=== PATIENT | female | born 1955 | race American Indian/Alaskan Native ===

== ENCOUNTER 2020-07-13 10:24 | Outpatient (CLI) | payer OTHER, MEDICARE ==
--- NOTE | 2020-07-13 11:17 | XRay Report ---
RIGHT SHOULDER 3 VIEW(S) INDICATION / CLINICAL INFORMATION: RT SHOULDER PAIN, DECREASED ROM COMPARISON: None available. FINDINGS: BONES / JOINT(S): No acute fracture or subluxation. Mild acromioclavicular degenerative arthrosis. SOFT TISSUES: Focal calcific density adjacent to the posterior greater tuberosity in the region of th e distal infraspinatus tendon which may represent calcific tendinitis. ADDITIONAL FINDINGS: None. Signer Name: Vipul Chung MD Signed: 07/13/2020 11:13 AM Workstation Name: [id number]
== END 2020-07-13 10:25 | disposition home or self-care (01) ==
LOC: XRAY 10:24
PROVIDERS: ATTEND Internal Medicine
DX: M19.011 Primary osteoarthritis, right shoulder (principal); M25.619 Stiffness of unspecified shoulder, not elsewhere classified; R22.32 Localized swelling, mass and lump, left upper limb

== ENCOUNTER 2021-02-09 15:35 | Emergency (ER) | payer OTHER, MEDICARE ==
--- NOTE | 2021-02-09 16:21 | Emergency Department Report ---
ED General Adult HPI - General Chief complaint: Skin/Abscess/Foreign Body Stated complaint: RT MIDDLE FINGER SPLINTER Time Seen by Provider: 02/09/21 16:16 Source: patient Mode of arrival: Ambulatory Limitations: No Limitations - History of Present Illness Initial comments: 66-year-old female patient presents emergency department with complaints of a splinter to her right middle finger. Patient states she was working with wood yesterday when the injury occurred. Multiple attempts to remove the splinter on her own have been unsuccessful. Denies numbness, paresthesias, skin color changes, decreased range of motion. Denies all other complaints at this time. - Related Data Previous Rx's Medication Instructions Recorded Last Taken Type Naproxen [Naprosyn] 500 mg PO BID #20 tablet 02/09/21 Unknown Rx Allergies Allergy/AdvReac Type Severity Reaction Status Date / Time No Known Allergies Allergy Unverified 02/09/21 16:10 ED Review of Systems ROS: Stated complaint: RT MIDDLE FINGER SPLINTER Other details as noted in HPI Other: GENERAL: Negative for fever. CARDIOVASCULAR: Negative for chest pain. PULMONARY: Negative for shortness of breath. GASTROINTESTINAL: Negative for abdominal pain. MUSCULOSKELETAL: Negative for back pain. NEUROLOGICAL: Negative for headache. INTEGUMENTARY: Positive for splinter. ED Past Medical Hx - Past Medical History Previous Medical History?: No - Surgical History Past Surgical History?: No - Social History Smoking Status: Never Smoker Substance Use Type: None - Medications Home Medications: Home Medications Medication Instructions Recorded Confirmed Last Taken Type Naproxen [Naprosyn] 500 mg PO BID #20 tablet 02/09/21 Unknown Rx ED Physical Exam - General Limitations: No Limitations - Other Other exam information: General: Awake, appropriately interactive, no acute distress. Neck: Supple. Full range of motion intact. Cardiovascular: Normal peripheral perfusion. Pulmonary: No respiratory distress. Patient is speaking normally without use of accessory muscles. Skin: Mild tenderness to palpation along the volar aspect of the right middle finger without overlying erythema or warmth. Full range of motion intact. Distal neurovascular motor/sensory function is intact. No bleeding or drainage. Neurological: No facial asymmetry. Speech is clear. Follows commands. Patient is alert and oriented. Musculoskeletal: Moves all four extremities spontaneously with normal range of motion. Psych: Cooperative. Appropriate mood and affect. ED Medical Decision Making - Medical Decision Making Differential diagnosis including but not limited to: abscess, cellulitis, retained foreign body, paronychia, felon Patient presents to the emergency department for evaluation of soft tissue foreign body. States that she accidentally punctured herself with a wooden splinter yesterday. Vital signs are stable. She is afebrile and neurovascularly intact. Full range of motion of the affected finger intact. No evidence to suggest tendon or nerve injury. No clinical signs of infection. It was explained to the patient that in the absence of infection and/or neurovascular compromise, there was no indication to remove the soft tissue foreign body on an emergent basis at this time. Is further advised that because the material of the foreign body is organic, it should come out on its own. However, she has been provided with a referral to orthopedics for further evaluation as needed on an outpatient basis. Patient expressed understanding and is agreeable to plan of care. Strict return precautions provided. Repeat exam is unremarkable and benign. History, exam, diagnostic testing, and current condition do not suggest worrisome pathology to warrant further testing, continued ED treatment, admission, or surgical evaluation at this point. Given the low probability of a significant medical illness, it would be more likely to result in harm than benefit to perform further testing at this stage. Discussed findings, presumptive diagnosis, need for follow-up and specific signs/symptoms that should prompt immediate return to the emergency department. Instructions were explained in detail to the patient in addition to giving written discharge information. Patient expressed understanding and was given the opportunity to ask questions, all of which were satisfactorily answered prior to discharge home. Critical care attestation.: If time is entered above; I have spent that time in minutes in the direct care of this critically ill patient, excluding procedure time. ED Disposition Clinical Impression: Splinter Disposition: DC-01 TO HOME OR SELFCARE Is pt being admited?: No Does the pt Need Aspirin: No Condition: Stable Instructions: Hand or Foot Foreign Body, Adult Additional Instructions: Take Tylenol every 4 hours as needed for pain. Take Naprosyn twice daily with food as needed for pain. Apply warm compresses and/or warm soaks to the affected area to promote blood flow, which will help facilitate removal of the splinter. Wooden splinters will usually come out on their own. If the finger is not infection, the splinter does not need to be removed on an emergent basis. Follow-up with Dr. Ventura, orthopedics, for reevaluation this week. Call tomorrow to schedule an appointment. Return to the emergency department immediately for new or worsening symptoms. Specifically, return to the emergency department immediately for increased pain, worsening swelling, fever, changes in sensation, changes in range of motion, bleeding, drainage, or any other concerns. Prescriptions: Naproxen [Naprosyn] 500 mg PO BID #20 tablet Referrals: LYNN VENTURA MD [Staff Physician] - 3-5 Days Time of Disposition: 16:20
== END 2021-02-09 16:46 | disposition home or self-care (01) ==
LOC: ED 15:35
DX: S60.452A Superficial foreign body of right middle finger, initial encounter (principal); Z79.899 Other long term (current) drug therapy; W45.8XXA Other foreign body or object entering through skin, initial encounter; Y93.89 Activity, other specified; Y92.89 Other specified places as the place of occurrence of the external cause; Y99.0 Civilian activity done for income or pay
CPT/HCPCS: 99281